=== PATIENT | female | born 1980 | race Hispanic/Latino ===

== ENCOUNTER 2017-11-18 22:01 | Observation (INO) | payer BC ==
[2017-11-18 22:14] VITALS: BMI 24.5
[2017-11-18] MEDS ORDERED: Glucagon Recombinant 1 mg Inj IV ONE (22:47)
--- NOTE | 2017-11-18 22:52 | ED PDOC ---
HPI: General Adult Time Seen by Provider: 11/18/17 22:31 Chief Complaint (Nursing): Foreign Body Chief Complaint (Provider): food stuck in throat History Per: Patient History/Exam Limitations: no limitations Onset/Duration Of Symptoms: Hrs (2) Current Symptoms Are (Timing): Still Present Additional Complaint(s): 37 y/o female presents for evaluation of possible food bolus stuck in throat x 2 hours. Patient states she was eating chicken and peas for dinner, and felt a sensation that a chunk of it got stuck in her chest area and has been moving up and down since then. Patient states she tried water and soda and vomited up food particles but still notes discomfort. Denies fever, difficulty speaking/ swallowing, cough, shortness of breath, abdominal pain. Past Medical History Reviewed: Historical Data, Nursing Documentation, Vital Signs Vital Signs: Last Vital Signs Temp 97.5 F L 11/18/17 22:15 Pulse 88 11/18/17 22:15 Resp 16 11/18/17 22:15 BP 114/58 L 11/18/17 22:15 Pulse Ox 99 11/19/17 03:37 - Surgical History Surgical History: No Surg Hx - Family History Family History: States: No Known Family Hx - Living Arrangements Living Arrangements: With Family - Home Medications Home Medications: Ambulatory Orders Medication Instructions Recorded Desogestrel-Ethinyl Estradiol 1 tab PO DAILY 11/19/17 [Apri 28 Day Tablet] - Allergies Allergies/Adverse Reactions: Allergies Allergy/AdvReac Type Severity Reaction Status Date / Time codeine AdvReac VOMITING Verified 11/18/17 22:14 Review of Systems ROS Statement: Except As Marked, All Systems Reviewed And Found Negative Cardiovascular: Positive for: Chest Pain Physical Exam - Reviewed Nursing Documentation Reviewed: Yes Vital Signs Reviewed: Yes - Physical Exam Appears: Positive for: Well, Non-toxic, No Acute Distress Head Exam: Positive for: ATRAUMATIC, NORMAL INSPECTION, NORMOCEPHALIC Skin: Positive for: Normal Color Eye Exam: Positive for: Normal appearance ENT: Positive for: Normal ENT Inspection Cardiovascular/Chest: Positive for: Regular Rate, Rhythm Respiratory: Positive for: Normal Breath Sounds Gastrointestinal/Abdominal: Positive for: Normal Exam Back: Positive for: Normal Inspection Extremity: Positive for: Normal ROM Neurologic/Psych: Positive for: Alert, Oriented - Laboratory Results Result Diagrams: 11/19/17 02:37 11/19/17 02:37 - ECG ECG: Positive for: Viewed By Me (reviewed by ED attending) ECG Rhythm: Positive for: Sinus Rhythm O2 Sat by Pulse Oximetry: 99 - Progress ED Course And Treament: IV glucagon 00:00 Patient reports little improvement; states she tried to drink water and vomited it back up. Case discussed with Dr. Garvey, GI Fellow with Dr. Marrero on-call, recommends CT neck/chest/upper abdomen for further eval EXAM: CT Neck and chest Without Intravenous Contrast CLINICAL HISTORY: 37 years old, female; Signs and symptoms; Other: Food stiuck; Other: Food stuck ; Additional info: Food bolus TECHNIQUE: Axial computed tomography images of the neck and chest without intravenous contrast. All CT scans at this facility use one or more dose reduction techniques, viz.: automated exposure control; ma/kV adjustment per patient size (including targeted exams where dose is matched to indication; i.e. head); or iterative reconstruction technique. Coronal and sagittal reformatted images were created and reviewed. COMPARISON: No relevant prior studies available. FINDINGS: Nasopharynx: Unremarkable. Oropharynx: Unremarkable. No significant tonsillar enlargement. Hypopharynx: Unremarkable. Larynx: Unremarkable. Normal epiglottis. Trachea: Unremarkable. Retropharyngeal space: Unremarkable. Submandibular/parotid glands: Unremarkable. Glands are normal in size. Thyroid: Unremarkable. No enlarged or calcified nodules. Bones/joints: No acute fracture.There is mild central spinal stenosis, secondary to disc buldge/osteophytic spurring. Soft tissues: Unremarkable. Vasculature: No acute findings. Lymph nodes: Unremarkable. No lymphadenopathy. Lungs: Unremarkable as visualized. Mediastinum: Unremarkable. No mass or adenopathy. No evidence of radiodense foreign body within the esophagus. At the EG junction, there is some impacted material just beyond the EG junction, best seen on series 5 image 98 and coronal series 604 image 39. IMPRESSION: There is some impacted non-radiodense material in the EG junction. No other evidence of foreign body. Findings discussed with Dr. Garvey, will need scope procedure in am. Unable to get in contact with Dr. Joi Rosa discussed case with Dr. Warren, Hospitalist on-call, for placement in observation 4:[address] Tamez, who recommends patient staying on Hospitalist service. Should the patient require admission after procedure, hospitalist can contact him to revert service at that time. Disposition - Clinical Impression Clinical Impression: Esophageal obstruction due to food impaction - Disposition Disposition Time: 03:36 Condition: FAIR
[2017-11-18] MEDS ORDERED: Glucagon Recombinant 1 mg Inj ONE (23:03)
[2017-11-19 02:43] LABS: BASO % 0.5 % (0.0-2.0); EOS # 0.2 K/uL (0.0-0.7); EOS % 2.4 % (0.0-4.0); HEMOGLOBIN 13.1 g/dL (12.0-16.0); LYMPH # 1.8 K/uL (1.0-4.3); LYMPH % 23.5 % (20.0-40.0); MEAN CORPUSCULAR HEMOGLOBIN 29.4 pg (27.0-31.0); MEAN CORPUSCULAR HGB CONC 33.4 g/dL (33.0-37.0); MEAN PLATELET VOLUME 9.9 fl (7.2-11.7); MONO # 0.3 K/uL (0.0-0.8); MONO % 3.5 % (0.0-10.0); NEUT # 5.3 K/uL (1.8-7.0); NEUT % 70.1 % (50.0-75.0); RBC 4.44 Mil/uL (3.80-5.20); RED CELL DISTRIBUTION WIDTH 12.9 % (11.5-14.5); WHITE BLOOD COUNT 7.5 K/uL (4.8-10.8)
[2017-11-19 02:50] LABS: ALB/GLOB RATIO 1.2 (1.0-2.1); ALBUMIN 3.7 g/dL (3.5-5.0); ALT/SGPT 26 U/L (9-52); AST/SGOT 22 U/L (14-36); BLOOD UREA NITROGEN 13 mg/dl (7-17); CALCIUM 8.7 mg/dL (8.4-10.2); GFR AFRICAN-AMERICAN > 60; GFR NON-AFRICAN AMERICAN > 60; PROTHROMBIN TIME 11.2 Seconds (9.8-13.1)
[2017-11-19 02:51] LABS: PARTIAL THROMBOPLASTIN TIME 27.7 Seconds (25.6-37.1)
--- NOTE | 2017-11-19 03:53 | CP.PCM.HP ---
History of Present Illness - History of Present Illness History of Present Illness: PMD: Dr Santoro Chief Complaint: Food stuck in throat The patient was seen and examined in the ED HPI: 37 years old female with hx of Bronchial Asthma, comes with heavy sensation in her chest which began while eating chicken. She believed that the chicken got stuck in her esophagus.No problem with the respirations nor talking. She drank water and soda in an attempt to Push the food particle down into the stomach. She tried inducing vomitus and a small amount of food came up , She referred that food had stuck in her esophagus 5 days prior, but it cleared spontaneously. 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 absent: Epistaxis, Nasal Congestion, Nasal Discharge, Change in Voice, Hoarsness, Sore Throat - Cardiovascular Cardiovascular: absent: Chest Pain, Dyspnea, Edema - Respiratory Respiratory: absent: Cough, Dyspnea, Wheezing, Stridor, Chest Congestion - Gastrointestinal Gastrointestinal: Dysphagia. absent: Abdominal Pain, Diarrhea, Nausea, Vomiting - Genitourinary Genitourinary: absent: Dysuria, Flank Pain, Hematuria, Urinary Frequency - Musculoskeletal Musculoskeletal: absent: Abnormal Gait, Back Pain, Muscle Weakness, Myalgias, Neck Pain - Integumentary Integumentary: absent: Pruritus, Rash, Skin Ulcer, Sores, Striae, Swelling - Neurological Neurological: absent: Confusion, Lack of Coordination, Radicular Pain, Syncope, Vertigo, Weakness - Psychiatric Psychiatric: absent: Anxiety, Depression, Panic Attacks - Endocrine Endocrine: absent: Palpitations, Polydipsia, Polyphagia, Polyuria - Hematologic/Lymphatic Hematologic: absent: Easy Bleeding, Easy Bruising Past Patient History - Past Medical History & Family History Past Medical History?: Yes - Past Social History Smoking Status: Never Smoked Chewing Tobacco Use: No Cigar Use: No Alcohol: None Drugs: Denies Home Situation {Lives}: With Family - CARDIAC Hx Cardiac Disorders: No - PULMONARY Hx Asthma: Yes - NEUROLOGICAL Hx Neurological Disorder: No - HEENT Hx HEENT Problems: No - RENAL Hx Chronic Kidney Disease: No - ENDOCRINE/METABOLIC Hx Endocrine Disorders: No - HEMATOLOGICAL/ONCOLOGICAL Hx Blood Disorders: No - INTEGUMENTARY Hx Dermatological Problems: No - MUSCULOSKELETAL/RHEUMATOLOGICAL Hx Musculoskeletal Disorders: No - GASTROINTESTINAL Hx Gastrointestinal Disorders: No - GENITOURINARY/GYNECOLOGICAL Hx Genitourinary Disorders: No - PSYCHIATRIC Hx Psychophysiologic Disorder: No Hx Substance Use: No - SURGICAL HISTORY Other/Comment: Fibroidectomy - ANESTHESIA Hx Anesthesia: Yes Hx Anesthesia Reactions: No Meds Allergies/Adverse Reactions: Allergies Allergy/AdvReac Type Severity Reaction Status Date / Time codeine AdvReac VOMITING Verified 11/18/17 22:14 Physical Exam - Constitutional Appears: No Acute Distress - Head Exam Head Exam: ATRAUMATIC, NORMAL INSPECTION, NORMOCEPHALIC - Eye Exam Eye Exam: EOMI, Normal appearance Pupil Exam: NORMAL ACCOMODATION, PERRL - ENT Exam ENT Exam: Mucous Membranes Moist, Normal Exam, Normal External Ear Exam, Normal Oropharynx - Neck Exam Neck exam: Positive for: Full Rom. Negative for: Lymphadenopathy, Normal Inspection, Thyromegaly - Respiratory Exam Respiratory Exam: Clear to Auscultation Bilateral. absent: Rales, Rhonchi, Wheezes - Cardiovascular Exam Cardiovascular Exam: REGULAR RHYTHM, RRR, +S1, +S2 - GI/Abdominal Exam GI & Abdominal Exam: Normal Bowel Sounds, Soft. absent: Hypoactive Bowel Sounds , Mass, Tenderness - Rectal Exam Rectal Exam: Deferred - Extremities Exam Extremities exam: Negative for: calf tenderness, joint swelling, normal inspection - Back Exam Back exam: NORMAL INSPECTION. absent: CVA tenderness (L), CVA tenderness (R) - Neurological Exam Neurological exam: Alert, CN II-XII Intact, Oriented x3, Reflexes Normal - Psychiatric Exam Psychiatric exam: Normal Affect, Normal Mood - Skin Skin Exam: Dry, Intact, Normal Color, Warm Results - Vital Signs Recent Vital Signs: Last Vital Signs Temp 97.5 F L 11/18/17 22:15 Pulse 88 11/18/17 22:15 Resp 16 11/18/17 22:15 BP 114/58 L 11/18/17 22:15 Pulse Ox 99 11/19/17 03:37 - Labs Result Diagrams: 11/19/17 02:37 11/19/17 02:37 Labs: Laboratory Results - last 24 hr 11/19/17 11/19/17 11/19/17 02:37 02:37 02:37 WBC 7.5 RBC 4.44 Hgb 13.1 Hct 39.1 MCV 88.0 MCH 29.4 MCHC 33.4 RDW 12.9 Plt Count 140 MPV 9.9 Neut % (Auto) 70.1 Lymph % (Auto) 23.5 [place] % (Auto) 3.5 Eos % (Auto) 2.4 Baso % (Auto) 0.5 Neut # (Auto) 5.3 Lymph # (Auto) 1.8 [place] # (Auto) 0.3 Eos # (Auto) 0.2 Baso # (Auto) 0.0 PT 11.2 INR 1.0 APTT 27.7 Sodium 139 Potassium 3.7 Chloride 108 H Carbon Dioxide 22 Anion Gap 13 BUN 13 Creatinine 0.7 Est GFR ( Amer) > 60 Est GFR (Non-Af Amer) > 60 Random Glucose 104 Calcium 8.7 Total Bilirubin 1.3 AST 22 ALT 26 Alkaline Phosphatase 47 Total Protein 6.8 Albumin 3.7 Globulin 3.0 Albumin/Globulin Ratio 1.2 - Imaging and Cardiology CT Head and Chest Additional comment: EXAM: . FINDINGS: Nasopharynx: Unremarkable. Oropharynx: Unremarkable. No significant tonsillar enlargement. Hypopharynx: Unremarkable. Larynx: Unremarkable. Normal epiglottis. Trachea: Unremarkable. Retropharyngeal space: Unremarkable. Submandibular/parotid glands: Unremarkable. Glands are normal in size. Thyroid: Unremarkable. No enlarged or calcified nodules. Bones/joints: No acute fracture.There is mild central spinal stenosis, secondary to disc buldge/osteophytic spurring. Soft tissues: Unremarkable. Vasculature: No acute findings. Lymph nodes: Unremarkable. No lymphadenopathy. Lungs: Unremarkable as visualized. Mediastinum: Unremarkable. No mass or adenopathy. No evidence of radiodense foreign body within the esophagus. At the EG junction, there is some impacted material just beyond the EG junction, best seen on series 5 image 98 and coronal series 604 image 39. IMPRESSION: There is some impacted non-radiodense material in the EG junction. No other evidence of foreign body. Assessment & Plan - Assessment and Plan (Free Text) Assessment: #. Impacted food bolus in esophagus Plan: 37 years old female with hx of Bronchial Asthma, comes with heavy sensation in her chest which began while eating chicken. She believed that the chicken got stuck in her esophagus.No problem with the respirations nor talking. She referred that food had stuck in her esophagus 5 days prior, but it cleared spontaneously. #. Impacted food bolus in esophagus - Consult Dr Janes SÁNCHEZ for EGD - NPO - Protonix - IF fluids #. Asthma - Albuterol PRN #. DVT prophylaxis - Full ambulation #. Code Status: Full - Date & Time Date: 11/19/17 Time: 03:53
[2017-11-19] MEDS ORDERED: Dextrose 5%/0.9% NS 1,000 ML IV SCH (04:00)
[2017-11-19] MEDS ORDERED: Albuterol 0.083% Inhal Sol (2.5 mg/3 mL) UD INH PRN (05:04)
--- NOTE | 2017-11-19 07:29 | CP.PCM.CON ---
<Fabiano Chaudhari - Last Filed: 11/19/17 08:20> History of Present Illness - History of Present Illness History of Present Illness: PGY5 GI Fellow Consult Note Patient is a 37yo female with no significant PMHx who presented last night with complaint of food being stuck in her throat. The patient had chicken and rice for dinner last night and while eating, developed substernal chest heaviness and the sensation that a piece of chicken would not pass through her esophagus. She tried drinking water and coca-cola to assist passage, but she became nauseated and vomited undigested food/liquid contents. At the time she presented to the ED, she states she could not tolerate swallowing her saliva. Patient was given Glucagon to aid passage of the suspected food bolus and later had a CT of the neck/chest appeared to show an obstruction at the level of the GE junction. Since arrival, the patient states this sensation has resolved and she believes the object to have passed from her esophagus and is now tolerating her secretions without issue. Patient admits to an episode with similar symptoms 5 days ago that resolved in a matter of minutes. Denies a history of reflux or prior endoscopy. Does admit to seasonal allergies with specific allergy to dust, mold and pollens. No weight loss, change in bowel habits, frequent use of NSAIDs and no new medications/supplements. PMHx: Discussed with patient and denies PSHx: Fibroid removed FHx: Brother - GERD Social: Denies tobacco or illicit drug use; 2 glasses of wine 3 times per week Endo: No prior endoscopic evaluations 12 system ROS performed and negative except where stated above. Past Patient History - Past Medical History & Family History Past Medical History?: Yes - Past Social History Smoking Status: Never Smoked Chewing Tobacco Use: No Cigar Use: No Alcohol: None Drugs: Denies Home Situation {Lives}: With Family - CARDIAC Hx Cardiac Disorders: No - PULMONARY Hx Asthma: Yes - NEUROLOGICAL Hx Neurological Disorder: No - HEENT Hx HEENT Problems: No - RENAL Hx Chronic Kidney Disease: No - ENDOCRINE/METABOLIC Hx Endocrine Disorders: No - HEMATOLOGICAL/ONCOLOGICAL Hx Blood Disorders: No - INTEGUMENTARY Hx Dermatological Problems: No - MUSCULOSKELETAL/RHEUMATOLOGICAL Hx Musculoskeletal Disorders: No - GASTROINTESTINAL Hx Gastrointestinal Disorders: No - GENITOURINARY/GYNECOLOGICAL Hx Genitourinary Disorders: No - PSYCHIATRIC Hx Psychophysiologic Disorder: No Hx Substance Use: No - SURGICAL HISTORY Other/Comment: Fibroidectomy - ANESTHESIA Hx Anesthesia: Yes Hx Anesthesia Reactions: No Meds Allergies/Adverse Reactions: Allergies Allergy/AdvReac Type Severity Reaction Status Date / Time codeine AdvReac VOMITING Verified 11/18/17 22:14 - Medications Medications: Current Medications Albuterol Sulfate (Albuterol 0.083% Inhal Kathy (2.5 Mg/3 Ml) Ud) 2.5 mg INH RQ6 PRN PRN Reason: Shortness of Breath Dextrose/Sodium Chloride (Dextrose 5%/0.9% Ns 1000 Ml) 1,000 mls @ 100 mls/hr IV .Q10H CASI Stop: 11/20/17 03:57 Last Admin: 11/19/17 04:30 Dose: 100 mls/hr Pantoprazole Sodium (Protonix Inj) 40 mg IVP DAILY CASI Physical Exam - Constitutional Appears: Non-toxic, No Acute Distress Additional comments: speaking in full sentences, able to tolerate her secretions without issue - Eye Exam Eye Exam: EOMI, PERRL - ENT Exam ENT Exam: Mucous Membranes Moist - Respiratory Exam Respiratory Exam: Clear to Auscultation Bilateral. absent: Rales, Rhonchi, Wheezes - Cardiovascular Exam Cardiovascular Exam: RRR, +S1, +S2 - GI/Abdominal Exam GI & Abdominal Exam: Normal Bowel Sounds, Soft. absent: Distended, Firm, Guarding, Organomegaly, Rigid, Tenderness - Extremities Exam Extremities exam: Positive for: normal inspection. Negative for: pedal edema - Neurological Exam Neurological exam: Alert, Oriented x3 - Psychiatric Exam Psychiatric exam: Normal Affect, Normal Mood - Skin Skin Exam: Dry, Warm Results - Vital Signs Recent Vital Signs: Last Vital Signs Temp 98.0 F 11/19/17 02:28 Pulse 69 11/19/17 02:28 Resp 16 11/19/17 02:28 BP 116/76 11/19/17 02:28 Pulse Ox 99 11/19/17 04:23 - Labs Result Diagrams: 11/19/17 02:37 11/19/17 02:37 Labs: Laboratory Results - last 24 hr 11/19/17 11/19/17 11/19/17 02:37 02:37 02:37 WBC 7.5 RBC 4.44 Hgb 13.1 Hct 39.1 MCV 88.0 MCH 29.4 MCHC 33.4 RDW 12.9 Plt Count 140 MPV 9.9 Neut % (Auto) 70.1 Lymph % (Auto) 23.5 Jay % (Auto) 3.5 Eos % (Auto) 2.4 Baso % (Auto) 0.5 Neut # (Auto) 5.3 Lymph # (Auto) 1.8 Jay # (Auto) 0.3 Eos # (Auto) 0.2 Baso # (Auto) 0.0 PT 11.2 INR 1.0 APTT 27.7 Sodium 139 Potassium 3.7 Chloride 108 H Carbon Dioxide 22 Anion Gap 13 BUN 13 Creatinine 0.7 Est GFR ( Amer) > 60 Est GFR (Non-Af Amer) > 60 Random Glucose 104 Calcium 8.7 Total Bilirubin 1.3 AST 22 ALT 26 Alkaline Phosphatase 47 Total Protein 6.8 Albumin 3.7 Globulin 3.0 Albumin/Globulin Ratio 1.2 Assessment & Plan - Assessment and Plan (Free Text) Assessment: Patient is a 37yo female with no significant PMHx who presented last night with complaint of food being stuck in her throat. -Food bolus impaction at the GE junction suspected Plan: -Maintain NPO -S/P Glucagon 0.5mg IV once -Protonix 40mg IV QAM -Plan for EGD this morning to relieve obstruction if present - Date & Time Date: 11/19/17 Time: 06:50 <Carolynn Marrero - Last Filed: 11/19/17 11:46> Meds - Medications Medications: Current Medications Albuterol Sulfate (Albuterol 0.083% Inhal Kathy (2.5 Mg/3 Ml) Ud) 2.5 mg INH RQ6 PRN PRN Reason: Shortness of Breath Dextrose/Sodium Chloride (Dextrose 5%/0.9% Ns 1000 Ml) 1,000 mls @ 100 mls/hr IV .Q10H CASI Stop: 11/20/17 03:57 Last Admin: 11/19/17 04:30 Dose: 100 mls/hr Pantoprazole Sodium (Protonix Inj) 40 mg IVP DAILY CASI Results - Vital Signs Recent Vital Signs: Last Vital Signs Temp 97.5 F L 11/19/17 10:37 Pulse 85 11/19/17 10:37 Resp 19 11/19/17 10:37 BP 110/65 11/19/17 10:37 Pulse Ox 100 11/19/17 10:37 - Labs Result Diagrams: 11/19/17 02:37 11/19/17 02:37 Labs: Laboratory Results - last 24 hr 11/19/17 11/19/17 11/19/17 02:37 02:37 02:37 WBC 7.5 RBC 4.44 Hgb 13.1 Hct 39.1 MCV 88.0 MCH 29.4 MCHC 33.4 RDW 12.9 Plt Count 140 MPV 9.9 Neut % (Auto) 70.1 Lymph % (Auto) 23.5 Jay % (Auto) 3.5 Eos % (Auto) 2.4 Baso % (Auto) 0.5 Neut # (Auto) 5.3 Lymph # (Auto) 1.8 Jay # (Auto) 0.3 Eos # (Auto) 0.2 Baso # (Auto) 0.0 PT 11.2 INR 1.0 APTT 27.7 Sodium 139 Potassium 3.7 Chloride 108 H Carbon Dioxide 22 Anion Gap 13 BUN 13 Creatinine 0.7 Est GFR ( Amer) > 60 Est GFR (Non-Af Amer) > 60 Random Glucose 104 Calcium 8.7 Total Bilirubin 1.3 AST 22 ALT 26 Alkaline Phosphatase 47 Total Protein 6.8 Albumin 3.7 Globulin 3.0 Albumin/Globulin Ratio 1.2 Attending/Attestation - Attestation I have personally seen and examined this patient.: Yes I have fully participated in the care of the patient.: Yes I have reviewed all pertinent clinical information: Yes Notes (Text): 11/19/17 11:43 This is a 37 yr old F admitted through ER with sensation of food bolus being stuck in epigastric region. Urgent EGD was done that showed no mucosal defects, no food bolus and no peristalsis defects. Biopsies were taken from mid and distal esophagus and antrum and body. Please see chart for full report. Omeprazole once daily was prescribed in am for 4 weeks. Can be discharged to home. Discussed with the hospitalist
[2017-11-19] MEDS ORDERED: Lactated Ringer's 500 ML IV ONE (08:30)
[2017-11-19] MEDS ORDERED: Lidocaine PF 2% (5 ml) Inj (For Cardiac Arrhy) IV ONE (09:49)
[2017-11-19] MEDS ORDERED: Propofol 10 mg/ml Inj (20 ML) ONE (09:49)
[2017-11-19 10:36] VITALS: TEMP 97.5; O2SAT 100
--- NOTE | 2017-11-19 11:15 | CT ---
PROCEDURE: CT Neck and Chest without contrast HISTORY: food bolus COMPARISON: None. TECHNIQUE: Contiguous axial images were obtained through the chest without intravenous contrast enhancement. Sagittal and coronal reconstructions were performed. Radiation dose (DLP): 964.87 mGy-cm. This CT exam was performed using one or more of the following dose reduction techniques: Automated exposure control, adjustment of the mA and/or kV according to patient size, and/or use of iterative reconstruction technique. FINDINGS: CT through the neck soft tissues is somewhat compromised by swallowing at the dana pharynx level with the airway occluded by the tonsillar pillars and posterior pharyngeal wall. Beam hardening also results here from swallowing obscuring this area. No retained radiodense foreign body is appreciate throughout the pharynx and larynx is within normal limits as well as the upper visualized trachea. Unenhanced salivary glands and thyroid gland appear grossly nonfocal no gross lymphadenopathy. Infrahyoid neck appears unremarkable diffusely. Overall, the exam is limited due lack of intravenous contrast administration. LUNGS: Clear lungs. Visualized airway clear including the visualized trachea. MEDIASTINUM: Unremarkable thoracic aorta. No aneurysm. Normal sized heart. Main pulmonary artery unremarkable. No vascular congestion. No lymphadenopathy. PLEURA: No pleural fluid. No pneumothorax. BONES: No fracture. No destructive lesion. UPPER ABDOMEN: Grossly unremarkable. OTHER FINDINGS: None. IMPRESSION: Unenhanced CT of the neck is limited at the upper pharynx level due to swallowing during the CT. Unremarkable non-contrast enhanced CT of the chest. Nevertheless, no retained radiodense foreign bodies identified throughout the visualized aerodigestive tract in the neck and chest. Concordant preliminary report from [facility], 11/19/2017.
[2017-11-19 11:41] VITALS: BP 110/65; PULSE 85; RESP 19
[2017-11-19] MEDS ORDERED: Sodium Chloride 0.9% 10 ML IV ONE (11:49)
[2017-11-19] MEDS ORDERED: Succinylcholine 200 mg/10 ml Inj IV ONE (11:49)
--- NOTE | 2017-11-19 21:05 | CARD ---
APPROVED REPORT EKG Measurement Heart [id number] CT 160P22 [id number] <Conclusion> Normal sinus rhythm Normal ECG
== END 2017-11-19 08:21 | disposition home or self-care (01) ==
LOC: H.ER 22:01 → H.ERHOLD 11-19 02:11
PROVIDERS: ADMIT Internal Medicine; ATTEND Internal Medicine
DX: T18.128A Food in esophagus causing other injury, initial encounter (principal); J45.909 Unspecified asthma, uncomplicated; X58.XXXA Exposure to other specified factors, initial encounter; Z88.6 Allergy status to analgesic agent; K29.70 Gastritis, unspecified, without bleeding; R13.10 Dysphagia, unspecified
CPT/HCPCS: 43239; 70490; 71250; 80053; 81025; 85025; 85610; 85730; 88305; 88312; 88342; 93005; 96374; 99284; G0378; J0330; J1610; J2405; J2704; J3010; J7042; J7120